=== PATIENT | female | born 1950 | race Caucasian/White ===

== ENCOUNTER 2016-10-14 11:34 | Emergency (ER) | payer MEDICARE ==
[~2016-10-14] VITALS: Ht 167.6 cm; Wt 86.0 kg
[2016-10-14] MEDS ORDERED: ASPIRIN 81 MG TABLET CHEW ONE (12:19)
[2016-10-14] MEDS ORDERED: MAALOX/HYOSCYAMINE/LIDOCAINE 45 ML BOTTLE ONE (12:20)
[2016-10-14] MEDS ORDERED: LORazepam 2 MG/ML, 1ML ONE (12:20)
[2016-10-14] MEDS ORDERED: SODIUM CHLORIDE FLUSH 10ML SYR IVF ONE (12:30)
[2016-10-14] MEDS ORDERED: ASPIRIN 81 MG TABLET CHEW PO ONE (12:30)
[2016-10-14] MEDS ORDERED: MAALOX/HYOSCYAMINE/LIDOCAINE 45 ML BOTTLE PO ONE (12:30)
[2016-10-14] MEDS ORDERED: LORazepam 2 MG/ML, 1ML IVPush ONE (12:30)
[2016-10-14 12:52] LABS: BLOOD UREA NITROGEN 14 mg/dL (7-18)
[2016-10-14 12:56] LABS: IS PT STATUS REG ER OR PRE ER? YES
[2016-10-14 13:47] VITALS: BP 98/62
== END 2016-10-14 14:05 | disposition home or self-care (01) ==
LOC: ED 14:00
DX: R07.2 Precordial pain (principal); K21.9 Gastro-esophageal reflux disease without esophagitis; I10 Essential (primary) hypertension
CPT/HCPCS: 36415; 71010; 80048; 82040; 84484; 85025; 93005; 96374; 99285; J2060